=== PATIENT | male | born 1995 | race Caucasian/White ===

== ENCOUNTER → 2020-01-27 10:51 | Outpatient (BNVA) | payer OTHER, BC, SELFPAY | PROVIDERS: Visit Provider Nurse Practitioner Family | DX: Z00.00 Encounter for general adult medical examination without abnormal findings (principal); I10 Essential (primary) hypertension; F41.9 Anxiety disorder, unspecified; F32.9 Major depressive disorder, single episode, unspecified | CPT/HCPCS: 80053; 80061; 84443; 85025 ==

== ENCOUNTER → 2020-04-08 13:41 | Outpatient (BNVA) | payer OTHER, BC, SELFPAY | PROVIDERS: Visit Provider Psychiatry & Neurology Psychiatry | DX: F41.1 Generalized anxiety disorder (principal); F10.20 Alcohol dependence, uncomplicated; F33.0 Major depressive disorder, recurrent, mild; F17.200 Nicotine dependence, unspecified, uncomplicated | CPT/HCPCS: 99204 ==

== ENCOUNTER → 2020-05-11 07:49 | Outpatient (BNVA) | payer OTHER, BC, SELFPAY | PROVIDERS: Visit Provider Psychiatry & Neurology Psychiatry | DX: F17.200 Nicotine dependence, unspecified, uncomplicated (principal); F33.0 Major depressive disorder, recurrent, mild; F10.20 Alcohol dependence, uncomplicated; F41.1 Generalized anxiety disorder | CPT/HCPCS: 99214 ==

== ENCOUNTER → 2020-07-09 09:19 | Outpatient (BNVA) | payer OTHER, BC, SELFPAY | PROVIDERS: Visit Provider Psychiatry & Neurology Psychiatry | DX: F33.0 Major depressive disorder, recurrent, mild (principal); F10.20 Alcohol dependence, uncomplicated; F41.1 Generalized anxiety disorder; F17.200 Nicotine dependence, unspecified, uncomplicated | CPT/HCPCS: 99204 ==

== ENCOUNTER → 2020-08-26 07:43 | Outpatient (BNVA) | payer SELFPAY | PROVIDERS: Visit Provider Psychiatry & Neurology Psychiatry | DX: F41.1 Generalized anxiety disorder (principal); F33.0 Major depressive disorder, recurrent, mild; F10.20 Alcohol dependence, uncomplicated; F17.200 Nicotine dependence, unspecified, uncomplicated; Z91.5 Personal history of self-harm | CPT/HCPCS: 99214 ==

== ENCOUNTER → 2020-12-20 09:44 | Outpatient (BNVA) | payer SELFPAY | PROVIDERS: Visit Provider Psychiatry & Neurology Psychiatry | DX: F33.0 Major depressive disorder, recurrent, mild (principal); F41.1 Generalized anxiety disorder; F10.20 Alcohol dependence, uncomplicated; F17.200 Nicotine dependence, unspecified, uncomplicated; F33.2 Major depressive disorder, recurrent severe without psychotic features | CPT/HCPCS: 99214 ==

== ENCOUNTER → 2021-06-02 09:13 | Outpatient (BNVA) | payer OTHER, SELFPAY | PROVIDERS: PCP Family Medicine; Referring Provider Family Medicine; Visit Provider Urology | DX: R79.89 Other specified abnormal findings of blood chemistry (principal); F41.1 Generalized anxiety disorder; Z79.899 Other long term (current) drug therapy | CPT/HCPCS: 81003; 84403 ==

== ENCOUNTER 2022-04-26 07:25 | Day surgery (SDC) | payer OTHER, SELFPAY ==
[2022-04-21 12:30] VITALS: BMI 26.6
[2022-04-26 07:55] VITALS: BP 148/80; PULSE 63; RESP 18; TEMP 36.7; O2SAT 96
[2022-04-26] MEDS: sodium chloride 0.9% 1,000 ML 30 ML IV (07:58)
--- NOTE | 2022-04-26 08:23 | ANES.PREANE2 ---
Pre-Anesthetic Assessment Height/Weight: Height 1.75 m Weight 81.647 kg Temp Pulse Resp BP Pulse Ox 98.1 F 63 18 148/80 96 04/26/22 07:55 04/26/22 07:55 04/26/22 07:55 04/26/22 07:55 04/26/22 07:55 Preop Diagnosis: upper gi symptoms Operation Date: 04/26/22 08:45 Proposed Procedures p EGD 26482/r19.7/22320/r11.2(Not Applicable) - Sal Tello MD s Colonoscopy(Not Applicable) - Sal Tello MD Was Beta Noah taken within 24 hours: N/A Was Clonidine taken within 24 hours: N/A Last intake: Intake Last Liquid Date 04/25/22 Last Liquid Time 23:30 Last Solid Date 04/24/22 Last Solid Time 23:00 Social Alcohol and Tobacco Exam alert, oriented x 3, clear to auscultation bilaterally and regular rate & rhythm Airway Submandibular: within normal limits Cervical ROM: within normal limits Mallampati: Class I Dentition: full Pulmonary None reported CV/HEM Hypertension None reported Hepatic None reported GI Gastroesophageal Reflux Disease Metabolic None reported Musc/skel None reported Neuropsych Anxiety and Depression Anesthetic Plan ASA status: 3 (26 year old smoker with ETOH use disorder hx, THN, GERD, anxiety, and depression ) Anesthesia: Anesthesia Evaluation and MAC Other: I discussed with the patient risks, goals, and benefits of MAC and general anesthesia. We discussed spectrum of MAC anesthesia including conversion to general as well as possibility of recall of intraoperative stimuli including discomfort/pain. Patient agrees to proceed with MAC. Risk of > 500 ml blood loss (7ml/kg in children): No Medications/Allergies Home Medications Medication Instructions Recorded Confirmed Last Taken Type lisinopril 10 mg tablet 40 mg PO DAILY 04/21/22 04/26/22 04/25/22 History Hcg 0.25 mg SUBMUCOSAL INJ DIRECTED 04/26/22 04/26/22 04/25/22 History testosterone 50 mg/mL 100 mg IM DIRECTED 04/26/22 04/26/22 04/25/22 History intramuscular solution Allergies Allergy/AdvReac Type Severity Reaction Status Date / Time Penicillins Allergy Unknown unknown Verified 04/26/22 07:52 Current Medications Generic Name Dose Route Start Last Admin Trade Name Freq PRN Reason Stop Dose Admin Sodium Chloride 1,000 mls @ 30 mls/hr 04/26/22 07:30 04/26/22 07:58 Sodium Chloride 0.9% IV 04/27/22 07:29 30 mls/hr .Q24H ARMIDA Administration PFSH Anesthesia Medical History History of fracture of right ankle Hypertension Low testosterone Surgical History History of ankle surgery Family History Other CAD (coronary artery disease) Diabetes Social History Smoking and tobacco status: current some day smoker cigarettes Packs smoked per day: 1 and smokeless tobacco Smokeless tobacco user: snuff Smokeless tobacco details: Can last a couple days Quit status (tobacco): has tried quititng Number of times tried to quit tobacco: 2 Second hand smoke exposure: No Smoking risk assessment/counseling performed?: No Alcohol intake: current Alcohol intake frequency: holidays/special occasions only Marital status: Current occupational status: employed Current gender identity: Male Data Anesthesia Cardiac Studies: No Data to Display
--- NOTE | 2022-04-26 08:28 | W.PM.OPSFHP ---
Same Day Surgery H&P Indication for Procedure/HPI DATE OF PROCEDURE: April 26, 2022 CHIEF COMPLAINT/INDICATIONFOR SURGICAL PROCEDURE: EGD/colonoscopy PREOP DIAGNOSIS: upper gi symptoms PLANNED PROCEDURE: Operation Date: 04/26/22 08:45 Proposed Procedures p EGD 17944/r19.7/72785/r11.2(Not Applicable) - Sal Tello MD s Colonoscopy(Not Applicable) - Sal Tello MD Medications/Allergies* Home Medications Medication Instructions Recorded Confirmed Type lisinopril 10 mg tablet 40 mg PO DAILY 04/21/22 04/26/22 History Hcg 0.25 mg SUBMUCOSAL INJ DIRECTED 04/26/22 04/26/22 History testosterone 50 mg/mL 100 mg IM DIRECTED 04/26/22 04/26/22 History intramuscular solution Allergies/Adverse Reactions Allergy/AdvReac Type Severity Reaction Status Date / Time Penicillins Allergy Unknown unknown Verified 04/26/22 07:52 Current Medications: Generic Name Dose Route Start Last Admin Trade Name Freq PRN Reason Stop Dose Admin Sodium Chloride 1,000 mls @ 30 mls/hr 04/26/22 07:30 04/26/22 07:58 Sodium Chloride 0.9% IV 04/27/22 07:29 30 mls/hr .Q24H ARMIDA Administration Pertinent History/Comorbid Conditions* Medical History (Updated 03/13/22 @ 14:08 by Sal Tello MD) History of fracture of right ankle Hypertension Low testosterone Surgical History (Updated 06/05/21 @ 10:36 by Hai Saleh MD) History of ankle surgery Family History (Updated 06/02/21 @ 09:19 by DONNIE Pacheco) Diabetes CAD (coronary artery disease) Social History Smoking and tobacco status: current some day smoker cigarettes Packs smoked per day: 1 and smokeless tobacco Smokeless tobacco user: snuff Smokeless tobacco details: Can last a couple days Quit status (tobacco): has tried quititng Number of times tried to quit tobacco: 2 Second hand smoke exposure: No Smoking risk assessment/counseling performed?: No Alcohol intake: current Alcohol intake frequency: holidays/special occasions only Marital status: Current occupational status: employed Current gender identity: Male Pertinent Exam Findings alert, oriented x 3 and regular rate & rhythm Recommendations Surgery/Procedure today Coding Level of Care Code 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
[2022-04-26 09:18] VITALS: BP 101/53; PULSE 60; RESP 14; TEMP 36.1; O2SAT 96
--- NOTE | 2022-04-26 10:38 | ANE.PACU2 ---
Inpatient post-anesthesia follow up: Airway intact: Yes Vital signs: Temperature 97 F Pulse Rate 60 Respiratory Rate 14 Blood Pressure 101/53 Pulse Oximetry 96 Oxygen Delivery Me thod Nasal Cannula Oxygen Flow Rate 4 Fraction of Inspir ed Oxygen Hydration adequate: Yes Nausea and vomiting: No Pain level: 1 Mental status: Baseline
== END 2022-04-26 09:56 | disposition home or self-care (01) ==
PROVIDERS: PCP Family Medicine; Visit Provider Surgery
PROC: 0DJ08ZZ Inspection of Upper Intestinal Tract, Via Natural or Artificial Opening Endoscopic (ICD-10-PCS; CPT 43235; principal; 2022-04-26 08:45)
PROC: 0DJD8ZZ Inspection of Lower Intestinal Tract, Via Natural or Artificial Opening Endoscopic (ICD-10-PCS; CPT 45378; 2022-04-26 08:45)
DX: R19.7 Diarrhea, unspecified (principal); R11.2 Nausea with vomiting, unspecified; I10 Essential (primary) hypertension; K21.9 Gastro-esophageal reflux disease without esophagitis; F41.9 Anxiety disorder, unspecified; F32.9 Major depressive disorder, single episode, unspecified; F17.290 Nicotine dependence, other tobacco product, uncomplicated
CPT/HCPCS: 43239; 45380; 82274; 83630; 87493; 87506; 88305; J2704; J7030

== ENCOUNTER 2022-08-22 08:56 | Outpatient (CLI) | payer OTHER, SELFPAY ==
--- NOTE | 2022-08-22 09:08 | MR_ITS ---
WS: [id number] MRI HEAD WITH CONTRAST TECHNIQUE: Sagittal T1, T2 axial, T2 axial FLAIR, axial susceptibility weighted imaging, axial diffus ion weighted images, and coronal T2 images were obtained. Pre and post-T1 axial and post T1 coronal i mages. ADC and FSPGR images. CLINICAL INFORMATION: HEADACHE, UNSPECIFIED/BLURRED VISION COMPARISON: CT 2006 FINDINGS: No evidence of restricted diffusion to suggest acute ischemia. Ventricular system and basal cisterns are patent. No suspicious intracranial signal abnormalities. Normal agrawal-white differentiation. Adwoa l posterior fossa. Normal vascular flow voids at the skull base. No extra-axial fluid collections. No evidence of mass or mass effect. Mild mucosal thickening in the ethmoid air cells. Mastoid air cells are well aerated. No hemosiderin on the susceptibly weighted images. Normal optic chiasm and pituitary infundibulum. No rmal cavernous sinuses and Meckel's cave. No abnormal intracranial enhancement. Normal dural venous sinuses. Incidental benign venous angioma L EFT frontal lobe. MR/MR head wo/w con [id number] IMPRESSION: 1. No evidence of restricted diffusion to suggest acute ischemia. 2. No suspicious intracranial signal abnormalities. Normal agrawal-white differen tiation. 3. Paranasal sinuses and mastoid air cells are well aerated. 4. No hemosiderin on susceptibly weighted images. 5. Normal optic chiasm and pituitary infundibulum. 6. Incidental benign venous angioma in the LEFT frontal lobe. 7. Normal dural venous sinuses.
[2022-08-22] MEDS: gadobenate dimeglumine 20 mL vial IV (09:56)
== END 2022-08-22 08:57 | disposition home or self-care (01) ==
LOC: RAD 08:59
PROVIDERS: PCP Nurse Practitioner Family; Visit Provider Nurse Practitioner Family
DX: R51.9 Headache, unspecified (principal); H53.8 Other visual disturbances; Q28.3 Other malformations of cerebral vessels
CPT/HCPCS: 70553